=== PATIENT | female | born 1985 | race Hispanic/Latino ===

== ENCOUNTER 2017-08-23 12:55 | Emergency (ER) | payer SELFPAY ==
[2017-08-23] MEDS ORDERED: METOCLOPRAMIDE 10 MG/2 ML VIAL ONE (13:19)
[2017-08-23] MEDS ORDERED: SODIUM CHLORIDE 0.9% 1000ML 1,000 ML IV ONE (13:20)
[2017-08-23 13:26] LABS: BASOPHILS % (AUTO) 0.4 % (0.0-5.0); EOSINOPHILS % (AUTO) 0.1 % (0.0-8.0); MEAN CORPUSCULAR HEMOGLOBIN 28.2 pg (27.0-33.0); MEAN CORPUSCULAR HGB CONC 33.1 g/dL (32.0-36.0); MEAN CORPUSCULAR VOLUME 85.1 fL (79-99); MONOCYTES % (AUTO) 14.7 % (3.0-13.0); NEUTROPHILS % (AUTO) 62.8 % (40.0-77.0); NUCLEATED RED BLOOD CELLS 0.1 % (0.0-0.19); PLATELET COUNT (AUTO) 281 K/uL (130-400); RED BLOOD CELL COUNT(AUTO) 5.41 MIL/uL (4.00-5.50); RED CELL DISTRIBUTION WIDTH 14.3 % (11.0-15.5); WHITE BLOOD COUNT (AUTO) 6.1 K/uL (4.8-10.8)
[2017-08-23 13:34] LABS: CREATININE 0.8 mg/dL (0.5-1.5); POTASSIUM 3.4 mmol/L (3.5-5.1)
[2017-08-23 13:38] LABS: APPEARANCE,URINE Cloudy (CLEAR); BILIRUBIN,URINE Negative (NEGATIVE); COLOR,URINE Yellow (YELLOW); GLUCOSE, URINE (UA) Negative (NEGATIVE); KETONES,URINE 15 mg/dL (NEGATIVE); LEUKOCYTE ESTERASE ,URINE Large (NEGATIVE); NITRATE,URINE Negative (NEGATIVE); OCCULT BLOOD,URINE Trace (NEGATIVE); PROTEIN,URINE Negative (NEGATIVE)
[2017-08-23 13:46] LABS: AMPHET/METH SCREEN,URINE NEGATIVE (NEGATIVE); BARBITURATE SCREEN, URINE NEGATIVE (NEGATIVE); BENZODIAZEPINES SCREEN,URINE NEGATIVE (NEGATIVE); CANNABINOID SCREEN,URINE NEGATIVE (NEGATIVE); COCAINE SCREEN,URINE NEGATIVE (NEGATIVE); OPIATE SCREEN,URINE NEGATIVE (NEGATIVE); PHENCYCLIDINE SCREEN,URINE NEGATIVE (NEGATIVE)
[2017-08-23 13:50] LABS: BILIRUBIN,TOTAL 0.4 mg/dL (0.2-1.0); TOTAL PROTEIN, SERUM 8.1 g/dL (6.0-8.3)
[2017-08-23 14:00] LABS: BACTERIA,URINE Few /HPF (None Seen); MUCUS,URINE Few LPF (None Seen); RBC,URINE 0-1 /HPF (0-1); SQUAMOUS EPITHELIAL CELL,UR Moderate /LPF (0-2)
== END 2017-08-23 15:30 | disposition home or self-care (01) ==
LOC: EDH 12:55
DX: R51 Headache (principal); R11.2 Nausea with vomiting, unspecified; J06.9 Acute upper respiratory infection, unspecified; Z98.51 Tubal ligation status
CPT/HCPCS: 36415; 80053; 80305; 81001; 83690; 84702; 85025; 96361; 96374; 99284; J2765; J7030

== ENCOUNTER 2017-09-18 08:15 | Emergency (ER) | payer SELFPAY ==
[2017-09-18] MEDS ORDERED: ONDANSETRON 4 MG TABLET ONE (08:43)
[2017-09-18] MEDS ORDERED: ACETAMINOPHEN 325 MG TAB ONE (08:43)
== END 2017-09-18 10:28 | disposition home or self-care (01) ==
LOC: EDH 08:15
DX: S06.0X0A Concussion without loss of consciousness, initial encounter (principal); X58.XXXA Exposure to other specified factors, initial encounter; Y93.89 Activity, other specified; Y92.89 Other specified places as the place of occurrence of the external cause; Y99.8 Other external cause status
CPT/HCPCS: 70450; 99284; Q0162

== ENCOUNTER 2018-01-15 07:55 | Emergency (ER) | payer OTHER ==
[2018-01-15] MEDS ORDERED: ONDANSETRON ODT 4 MG TAB ONE (08:09)
[2018-01-15 08:57] LABS: RAPID GROUP A STREP POSITIVE (NEGATIVE)
== END 2018-01-15 09:47 | disposition home or self-care (01) ==
LOC: EDH 07:55
DX: J02.0 Streptococcal pharyngitis (principal); Z88.2 Allergy status to sulfonamides
CPT/HCPCS: 81025; 87804; 87880

== ENCOUNTER → 2023-01-05 | Outpatient (CLI) | payer BC | END | disposition home or self-care (01) | LOC: RAH 14:50 | PROVIDERS: ATTEND Obstetrics & Gynecology | DX: R10.2 Pelvic and perineal pain (principal) | CPT/HCPCS: 76830 ==